=== PATIENT | female | born 1970 | race Caucasian/White ===

== ENCOUNTER → 2018-06-11 | Outpatient (CLI) | payer OTHER ==
[~2018-06-11] MED LIST: ATOR10TA24 PO; BUTA-324 PO; IBU600 PO; IBUP800T37 PO; LOR5/325 PO; PER PO; [UNRECOGNIZED DRUG - OTHER] PO
--- NOTE | 2018-06-11 15:32 | RADIOLOGY IMAGING REPORT ---
FAC[facility] PATIENT NAME: LILLIE BONILLA : [id number] MR: [id number] V: [id number] EXAM DATE: ORDERING PHYSICIAN: DAYAMI KEY TECHNOLOGIST: Nolvia Strange PROCEDURE:BILATERAL DIGITAL SCREENING MAMMOGRAM WITH CAD ASSISTED INTERPRETATION & 3D TOMOSYNTHESIS COMPARISON:Prior mammograms 05/15/2017, 02/28/2016. INDICATIONS:SCREENING TISSUE DENSITY: Breasts are heterogeneously dense, and small masses can obscured. FINDINGS: There is no mammographic finding, suspicious for malignancy, and no significant change compared to prior mammograms. DIAGNOSTIC CATEGORY 1--NEGATIVE. RECOMMENDATIONS: ANNUAL BILATERAL SCREENING MAMMOGRAM AND CLINICAL EVALUATION. IMPRESSION: BIRADS 1: Negative. Dictated by: Juju Velásquez M.D. on 06/11/2018 at 12:30 Transcribed by: LISA on 06/11/2018 at 14:03 Approved by: Juju Velásquez M.D. on 06/11/2018 at 15:32 [facility]
== END ==
LOC: MAMO 04:32
PROVIDERS: ATTEND Nurse Practitioner Family
DX: Z12.31 Encounter for screening mammogram for malignant neoplasm of breast (principal)
CPT/HCPCS: 77063; 77067